=== PATIENT | female | born 1985 | race Caucasian/White ===

== ENCOUNTER → 2016-09-02 09:50 | Day surgery (SDC) | payer OTHER ==
--- NOTE | 2016-08-31 21:00 | HP ---
PREOPERATIVE HISTORY AND PHYSICAL: DATE OF ADMISSION/SURGERY: 09/02/16 DATE OF OFFICE VISIT/ENCOUNTER: 08/31/16 ATTENDING PHYSICIAN: Dr. Samantha Campa. PROCEDURE: Left long finger pin removal. CHIEF COMPLAINT: Retained pins, left long finger. 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 She has retained pins, and Dr. Campa is recommending pin removal at this time. PAST MEDICAL HISTORY: Significant for seasonal allergies. PAST SURGICAL HISTORY: 1. Left long finger open reduction internal fixation of the distal phalanx with distal radial bone graft. 2. Left long finger closed reduction and pinning with nail bed repair. 3. Tonsillectomy. 4. Right thumb surgery as a child. CURRENT MEDICATIONS: 1. Ibuprofen 200 mg p.r.n. 2. Hydroxyzine HCl 25 mg 1 to 2 tabs per day p.r.n. 3. Elidel 1% topical lotion p.r.n. ALLERGIES: ERYTHROMYCIN causes hives, topical BACITRACIN and NEOMYCIN cause rash. FAMILY MEDICAL HISTORY: Noncontributory. SOCIAL HISTORY: The patient is a resident in Anesthesia at [facility]. She denies tobacco use. She denies illicit drug use. She does admit to alcohol use on occasion. REVIEW OF SYSTEMS: General: Negative for fevers, chills, or night sweats. No known anesthesia problems. HEENT: Negative for headache, lightheadedness, or syncopal episodes. Integumentary: Negative for abrasions, lesions, or open wounds. Cardiothoracic: Negative for chest pain, palpitations, or edema. Negative for hypertension. Pulmonary: Negative for shortness of breath with exertion, chronic cough, COPD. GI: Negative for nausea, vomiting, diarrhea, constipation or GERD. : Negative for nocturia, urinary frequency, urgency, history of UTIs, or kidney problems. Musculoskeletal: Positive for current complaint. Negative for chronic or intermittent back pain. Neurological: Negative for paresthesias, numbness, history of seizure, stroke, or epilepsy. Endocrine: Negative for diabetes or thyroid issues. Hematologic: Negative for easy bruising, anemia, excessive bleeding, or history of DVT. Infectious Disease: Negative for history of MRSA, hepatitis C, or HIV. PHYSICAL EXAMINATION GENERAL: Well-developed, well-nourished, 31-year-old female in no acute distress. VITAL SIGNS: Height 5 feet 7 inches, weight 140 pounds, blood pressure 97/65, pulse rate 74. HEENT: Normocephalic, atraumatic. Pupils are equal, round, reactive to light and accommodation. Extraocular movements are intact. NECK: Supple. No palpable lymph node. Throat is clear. PULMONARY: Lungs are clear to auscultation bilaterally. No wheezes, rales, or rhonchi. CARDIOTHORACIC: Regular rate and rhythm. S1 and S2. No murmurs, rubs, or gallops. No edema. ABDOMEN: Positive bowel sounds. Soft and nontender. NEUROLOGIC: Alert and oriented x3. Cranial nerves II through XII are intact. Sensation is intact to light touch. MUSCULOSKELETAL: On exam of the left middle finger, the incision is clean and dry. There is tenderness to palpation at the distal phalanx. No sign of infection. She has intact neurovascular function. SKIN: Intact. DIAGNOSTIC STUDIES: Imaging studies: X-rays of the left middle finger show some interval healing of the distal phalanx. PLAN: The patient is scheduled to undergo left long finger pin removal with Dr. Campa on 09/02/16. She will return to the office 10 to 14 days postop for followup and suture removal. A prescription for Ultracet was e-scribed to the patient's pharmacy for postoperative pain management. CHARLOTTE HOPPER [id number]/[facility] #: [id number] MARKY
[~2016-09-02 09:50] MED LIST: Buffered Lidocaine 1% SYR 3ML* 3 ML/SYR SYRINGE INTRADERM ONE; Buffered Lidocaine 1% SYR 3ML* 3 ML/SYR SYRINGE ONE; Lidocaine 1% INJ* 10 MG/ML 30 ML SDV ONE; Lidocaine 2% PF * 5 ML VIAL ONE; Propofol* 10 MG/ML 20 ML BTL IV PUSH ONE
[2016-09-02 12:05] VITALS: BP 112/77
--- NOTE | 2016-09-04 06:16 | OP ---
DATE OF OPERATION: 09/02/16 - [facility] DATE OF : 87 SURGEON: Samantha Campa MD TUNNELLER: CHARLOTTE Duran ANESTHESIOLOGIST: Marco Banks DO ANESTHESIA: Local MAC. PRE-OP DIAGNOSIS: Status post ORIF of the left long finger distal phalanx. POST-OP DIAGNOSIS: Status post ORIF of the left long finger distal phalanx. OPERATIVE PROCEDURE: Pin removal of left long finger. ESTIMATED BLOOD LOSS: Zero. TOURNIQUET TIME: 5 minutes. INDICATIONS FOR PROCEDURE: Dary is a 31-year-old female who suffered a dog bite with a distal phalanx fracture. She had a nonunion of the fracture, this was treated with pinning and bone graft. Because the pins were planned to stay in for quite sometime they were cut below the skin. She presents for pin removal. DESCRIPTION OF PROCEDURE: The patient was brought to the operating room, was given a sedation anesthetic and a digital block with 10 cc of 1% plain lidocaine. The skin of her left hand and forearm were prepped and draped in the usual sterile fashion. The hand and forearm were exsanguinated and the tourniquet elevated to 250 mmHg. A transverse incision was made at the end of the finger and pins were extracted easily. The wound was irrigated and skin edges reapproximated with 4-0 nylon sutures. The wound was dressed with Xeroform, 4x4, Webril and an AlumaFoam splint. The patient tolerated the procedure well, was brought back to recovery room in good condition. [id number]/[facility] #: [id number] [facility]
== END | disposition home or self-care (01) ==
LOC: OREAST 09:50
PROVIDERS: ATTEND Orthopaedic Surgery
DX: Z47.2 Encounter for removal of internal fixation device (principal); S62.633D Displaced fracture of distal phalanx of left middle finger, subsequent encounter for fracture with routine healing; W54.0XXD Bitten by dog, subsequent encounter
CPT/HCPCS: 88300; J2704

== ENCOUNTER 2016-12-02 09:35 | Emergency (ER) | payer BC, OTHER ==
--- NOTE | 2016-12-02 10:53 | UC ---
Complaint Female HPI - HPI Summary HPI Summary: THINKS SHE MAY HAVE A TAMPON IN HER VAGINA PAST 2 WEEKS. PUT ONE IN AND NOT SURE IF SHE TOOK IT OUT. STARTED HAVING MALODOROUS VAGINAL DISCHARGE 2 DAYS AGO. NO FEVER. NO PAIN. NO URINARY SX. - History Of Current Complaint Chief Complaint: UCGeneralIllness Stated Complaint: TAMPON RETENTION,DISCHARGE Time Seen by Provider: 12/02/16 10:17 Hx Obtained From: Patient Hx Last Menstrual Period: 11/21/16 Onset/Duration: Lasting Days, Still Present Timing: Constant Severity Initially: Mild Severity Currently: Mild Pain Intensity: 0 Pain Scale Used: 0-10 Numeric Aggravating Factor(s): Nothing Alleviating Factor(s): Nothing Associated Signs And Symptoms: Positive: Vaginal Discharge. Negative: Fever, Back Pain, Vaginal Bleeding/Discharge, Nausea, Vomiting(# Of Episodes =), Genital Swelling, Genital Blisters - Allergies/Home Medications Allergies/Adverse Reactions: Allergies Allergy/AdvReac Type Severity Reaction Status Date / Time Bee Venom Allergy Severe Anaphylatic Verified 12/02/16 10:36 Shock Bacitracin Allergy Intermediate Rash Verified 12/02/16 10:36 Neomycin Allergy Intermediate Rash Verified 12/02/16 10:36 Nickel Allergy Intermediate Rash Verified 12/02/16 10:36 Erythromycin Allergy Mild Hives Verified 12/02/16 10:36 PMH/Surg Hx/FS Hx/Imm Hx Endocrine History Of: Denies: Diabetes, Thyroid Disease Cardiovascular History Of: Denies: Hypertension Respiratory History Of: Reports: Asthma - EXERCISE INDUCED Denies: Bronchitis Neurological History Of: Denies: Seizures, Migraine Psychological History Of: Denies: Anxiety, Depression - Surgical History Surgical History: Yes Surgery Procedure, Year, and Place: TONSILLECTOMY IN 2009. AT AGE 9 FINGER LACERATION REPAIR. 12/2015 LEFT LONG FINGER REPAIR. 04/2016 LEFT LONG FINGER REPAIR AND BONE GRAFT - Family History Known Family History: Positive: Hypertension - Social History Alcohol Use: Occasionally Alcohol Amount: COUPLE DRINKS PER WEEK Substance Use Type: None Smoking Status (MU): Never Smoked Tobacco Review of Systems Constitutional: Negative Respiratory: Negative Cardiovascular: Negative Gastrointestinal: Negative Genitourinary: Other - VAGINAL D/C All Other Systems Reviewed And Are Negative: Yes Physical Exam Triage Information Reviewed: Yes Appearance: Well-Appearing, No Pain Distress, Well-Nourished Vital Signs: Initial Vital Signs Temp 98.7 F 05/12/17 10:31 Pulse 78 12/02/16 10:31 Resp 18 12/02/16 10:31 BP 110/78 12/02/16 10:31 Pulse Ox 99 12/02/16 10:31 Vital Signs Reviewed: Yes Eyes: Positive: Conjunctiva Clear ENT: Positive: Hearing grossly normal Neck: Positive: Supple Respiratory: Positive: No respiratory distress, No accessory muscle use Cardiovascular: Positive: Pulses Normal Abdomen Description: Positive: Soft Musculoskeletal: Positive: No Edema Neurological: Positive: Alert Psychological: Positive: Age Appropriate Behavior Skin: Negative: rashes UC Physical Exam Vital Signs On Initial Exam: Initial Vitals Temp Pulse Resp BP Pulse Ox 98.7 F 78 18 110/78 99 12/02/16 10:31 12/02/16 10:31 12/02/16 10:31 12/02/16 10:31 12/02/16 10:31 - Genitalia Exam Female Genitourinary: Normal External Exam, Vagina without Blood/Discharge, Genitalia without Lesions/Masses, Cervix Closed, Other - RETAINED TAMPON IN VAGINAL VAULT. NO DISCHARGE. MUCOSA PINK AND HEALTHY Complaint Female Dx - Course Course Of Treatment: RETAINED TAMPON REMOVED USING RING FORCEPS. VAGINAL MUCOSA APPEARS HEALTHY. NO DISCHARGE SEEN. WILL SEND AFFIRM FOR VAGINITIS. NO TREATMENT FOR NOW. ODOR AND DISCHARGE WILL LIKELY RESOLVE NOW THAT FB IS REMOVED. AWAIT RESULTS. - Differential Dx/Diagnosis Provider Diagnoses: RETAINED TAMPON - REMOVED Discharge - Discharge Plan Condition: Stable Disposition: HOME Patient Education Materials: Vaginal Foreign Body (ED) Additional Instructions: RETAINED TAMPON SUCCESSFULLY REMOVED TODAY. WILL HOLD OFF ON ANY TREATMENT YOUR SYMPTOMS WILL LIKELY RESOLVE NOW THAT THE FOREIGN BODY IS OUT. SWABS SENT TO CHECK FOR VAGINITIS. WE WILL CALL YOU IF ANY ABNORMAL RESULTS. CALL THE NUMBERS BELOW TO ESTABLISH WITH PRIMARY PROVIDERS. CALL THE NUMBER BELOW FOR ASSISTANCE IN ESTABLISHING WITH A PCP An additional resource available to assist in finding the appropriate physician for your health care needs is the [facility] ([facility]). You may contact them by calling [phone]. MANQUIN ELEVATOR REPAIR MECH[employer]IC [phone]
[2016-12-02 11:11] VITALS: BP 110/78
--- NOTE | 2016-12-03 07:38 | UC ---
Progress - Progress Note Progress Note: Affirm (+) for yeast will e prescribe diflucan please notify pt
== END 2016-12-02 11:15 | disposition home or self-care (01) ==
LOC: UCEAST 09:35
DX: T19.2XXA Foreign body in vulva and vagina, initial encounter (principal); J45.990 Exercise induced bronchospasm; Z88.3 Allergy status to other anti-infective agents; Z91.030 Bee allergy status
CPT/HCPCS: 87480; 87510; 87660; 99212; G0463